=== PATIENT | female | born 1930 | race African-American/Black ===

== ENCOUNTER 2017-05-31 09:54 | Inpatient (IN) | payer MEDICARE, OTHER ==
[~2017-05-31] VITALS: Ht 152.4 cm; Wt 78.0 kg
[2017-05-31] VITALS (34 sets, daily range): BP systolic 90–161; BP diastolic 37–122
[~2017-05-31 09:54] MED LIST: AMLO2.5T45 PO; CHOL100046 PO; FOLI-43 PO; FURO20TA4 PO; MEMA10TA2 PO; MESA800T PO; METH4TAB17 PO; POTA10TA11 PO; PRED1TAB PO
[2017-05-31] MEDS ORDERED: PHENYTOIN SODIUM 500MG in SODIUM CHLORIDE 0.9% 50ML IV ONE (11:15)
[2017-05-31] MEDS ORDERED: PHENYTOIN SODIUM 100MG/2ML VIAL IV ONE (11:15)
[2017-05-31 11:41] LABS: BASOPHILS % 0.8 % (0.0-2.0); EOSINOPHILS % 2.2 % (0.0-5.0); HEMATOCRIT. 38.6 % (36.0-48.0); HEMOGLOBIN. 12.8 g/dL (12.0-16.0); LYMPHOCYTES % 23.3 % (20.0-50.0); MEAN CORPUSCULAR HEMOGLOBIN 30.8 pg (28.0-32.0); MEAN CORPUSCULAR VOLUME 92.8 fL (81.0-99.0); MEAN PLATELET VOLUME 9.1 fl (7.4-10.4); MONOCYTES % 7.3 % (2.0-8.0); NEUTROPHILS % 66.4 % (40.0-76.0); PLATELET 226 x1000/uL (130-400); RED BLOOD CELL COUNT 4.16 mill/uL (4.2-5.4); RED CELL DISTRIBUTION WIDTH 14.5 % (11.6-14.6)
[2017-05-31 11:47] LABS: INR 1.1; PROTHROMBIN TIME 10.9 sec (9.4-11.6)
[2017-05-31 11:54] LABS: CARBON DIOXIDE 30 mEq/L (21-32); CHLORIDE 107 mEq/L (98-107)
[2017-05-31] MEDS ORDERED: SODIUM CHLORIDE 0.9% 500 ML IV ONE (12:45)
[2017-05-31] MEDS ORDERED: HALOPERIDOL LACTATE 5MG/ML VIAL IM ONE (13:00)
[2017-05-31] MEDS ORDERED: LORAZEPAM 2MG/ML CPJ IM STA (14:00)
[2017-05-31] MEDS ORDERED: MORPHINE SULFATE 2 MG/ML CPJ (NOT FOR IM USE) IV PRN (14:15)
[2017-05-31] MEDS ORDERED: ONDANSETRON HCL 4MG/2ML VIAL IV PRN (14:45)
[2017-05-31] MEDS ORDERED: HALOPERIDOL LACTATE 5MG/ML VIAL IM PRN (14:45)
[2017-05-31] MEDS ORDERED: LORAZEPAM 2MG/ML CPJ IV PRN (14:45)
[2017-05-31] MEDS ORDERED: CLONIDINE 0.1MG TABLET PO PRN (14:45)
[2017-05-31] MEDS ORDERED: DIPHENHYDRAMINE 50MG/ML VIAL IV PRN (14:45)
[2017-05-31] MEDS ORDERED: LORAZEPAM 2MG/ML CPJ IV NR (14:45)
[2017-05-31] MEDS ORDERED: DEXT 5%/0.45% NACL KCL 10MEQ/L 1,000 ML IV SCH (14:45)
[2017-05-31] MEDS ORDERED: ACETAMINOPHEN 325MG TABLET PO PRN (14:45)
[2017-05-31] MEDS ORDERED: HALOPERIDOL LACTATE 5MG/ML VIAL IM NR (14:50)
[2017-05-31] MEDS ORDERED: DIPHENHYDRAMINE 50MG/ML VIAL IM NR (15:00)
[2017-05-31] MEDS ORDERED: DEXT 5%/LACTATED RINGERS 1,000 ML IV SCH (15:20)
[2017-05-31] MEDS: PANTOPRAZOLE SODIUM 40 MG/VIAL IV SCH (16:12)
[2017-05-31] MEDS ORDERED: NICARDIPINE 100 MG in SODIUM CHLORIDE 0.9% 60 ML IV PRN ×4 (16:30)
[2017-05-31] MEDS: DEXAMETHASONE 4MG/ML 1ML VIAL IV SCH ×2 (17:37→23:24)
[2017-05-31] MEDS: PHENYTOIN SODIUM 100MG/2ML VIAL IV SCH (21:11)
[2017-06-01] VITALS (61 sets, daily range): BP systolic 91–159; BP diastolic 35–115
[2017-06-01 05:24] LABS: BASOPHILS % 0.2 % (0.0-2.0); HEMATOCRIT. 38.4 % (36.0-48.0); HEMOGLOBIN. 12.8 g/dL (12.0-16.0); LYMPHOCYTES % 12.1 % (20.0-50.0); MEAN CORPUSCULAR HEMOGLOBIN 31.1 pg (28.0-32.0); MEAN CORPUSCULAR VOLUME 93.3 fL (81.0-99.0); MEAN PLATELET VOLUME 9.9 fl (7.4-10.4); MONOCYTES % 1.8 % (2.0-8.0); NEUTROPHILS % 85.9 % (40.0-76.0); PLATELET 181 x1000/uL (130-400); RED BLOOD CELL COUNT 4.12 mill/uL (4.2-5.4); RED CELL DISTRIBUTION WIDTH 14.3 % (11.6-14.6)
[2017-06-01] MEDS: PHENYTOIN SODIUM 100MG/2ML VIAL IV SCH ×3 (05:29→21:36)
[2017-06-01] MEDS: DEXAMETHASONE 4MG/ML 1ML VIAL IV SCH ×3 (05:29→21:36)
[2017-06-01 05:43] LABS: CARBON DIOXIDE 27 mEq/L (21-32); CHLORIDE 108 mEq/L (98-107)
[2017-06-01] MEDS: PANTOPRAZOLE SODIUM 40 MG/VIAL IV SCH (09:28)
[2017-06-01] MEDS ORDERED: IPRATROPIUM/ALBUTEROL 0.5-3(2.5)MG/3ML NEB HHN PRN (09:30)
[2017-06-01] MEDS: MORPHINE SULFATE 2 MG/ML CPJ (NOT FOR IM USE) IV PRN (12:32)
[2017-06-01] MEDS ORDERED: GADOBENATE DIMEGLUMINE 529 MG/ML 10ML IV ONE (13:17)
[2017-06-01] MEDS: DEXT 5%/0.9% NACL 1,000 ML IV SCH (18:03)
[2017-06-02] VITALS (90 sets, daily range): BP systolic 92–160; BP diastolic 36–109
[2017-06-02] MEDS: PHENYTOIN SODIUM 100MG/2ML VIAL IV SCH ×3 (05:36→22:07)
[2017-06-02] MEDS: MORPHINE SULFATE 2 MG/ML CPJ (NOT FOR IM USE) IV PRN ×2 (05:51→10:04)
[2017-06-02] MEDS: DEXAMETHASONE 4MG/ML 1ML VIAL IV SCH ×2 (09:02→22:01)
[2017-06-02] MEDS: PANTOPRAZOLE SODIUM 40 MG/VIAL IV SCH (09:02)
[2017-06-02] MEDS ORDERED: BISACODYL 10MG SUPP PR PRN (09:15)
[2017-06-02] MEDS: DEXT 5%/0.9% NACL 1,000 ML IV SCH (11:40)
[2017-06-02] MEDS ORDERED: MORPHINE SULFATE 2 MG/ML CPJ (NOT FOR IM USE) IV PRN (18:30)
[2017-06-03] VITALS (62 sets, daily range): BP systolic 105–164; BP diastolic 33–90
[2017-06-03] MEDS: DEXT 5%/0.9% NACL 1,000 ML IV SCH (04:18)
[2017-06-03] MEDS ORDERED: PHENYTOIN SODIUM 250MG/5ML VIAL IV SCH (06:00)
[2017-06-03] MEDS: DEXAMETHASONE 4MG/ML 1ML VIAL IV SCH (08:51)
[2017-06-03] MEDS: PANTOPRAZOLE SODIUM 40 MG/VIAL IV SCH (08:51)
[2017-06-03] MEDS ORDERED: ALEN70TA46 PO (13:25)
[2017-06-03] MEDS ORDERED: AMLO2.5T45 PO (13:25)
[2017-06-03] MEDS ORDERED: MESA800T PO (13:25)
[2017-06-03] MEDS ORDERED: BRIM10DR2 OP (13:25)
[2017-06-03] MEDS ORDERED: CHOL20004 PO (13:25)
[2017-06-03] MEDS ORDERED: FOLI-43 PO (13:25)
== END 2017-06-03 16:00 | disposition home health service (06) | DRG 64 ==
LOC: ER 10:43 → MICUSO 12:26 → EDBEDREQ 12:30 → ENRESERV 13:17
PROVIDERS: ADMIT Internal Medicine; ATTEND Internal Medicine
DX: I61.1 Nontraumatic intracerebral hemorrhage in hemisphere, cortical (principal); G93.40 Encephalopathy, unspecified; E11.9 Type 2 diabetes mellitus without complications; G30.9 Alzheimer's disease, unspecified; F02.80 Dementia in other diseases classified elsewhere, unspecified severity, without behavioral disturbance, psychotic disturbance, mood disturbance, and anxiety; I10 Essential (primary) hypertension; M19.90 Unspecified osteoarthritis, unspecified site; K44.9 Diaphragmatic hernia without obstruction or gangrene; K57.90 Diverticulosis of intestine, part unspecified, without perforation or abscess without bleeding; H40.9 Unspecified glaucoma; M06.9 Rheumatoid arthritis, unspecified; Z88.8 Allergy status to other drugs, medicaments and biological substances; Z79.899 Other long term (current) drug therapy; Z90.49 Acquired absence of other specified parts of digestive tract; Z86.73 Personal history of transient ischemic attack (TIA), and cerebral infarction without residual deficits; Z82.49 Family history of ischemic heart disease and other diseases of the circulatory system
CPT/HCPCS: 36415; 70450; 70553; 80048; 80053; 80061; 85025; 85610; 85651; 86850; 86900; 92610; 93970; 96365; 96372; 99291; A9577; C9113; J1100; J1165; J1630; J2060; J2270; J3490; J7030; J7042; J7050; A4315

== ENCOUNTER 2018-08-21 23:17 | Emergency (ER) | payer MEDICARE ==
[~2018-08-21 23:17] MED LIST changes: +ALEN70TA46 PO; +BRIM10DR2 OP; -CHOL100046 PO; +CHOL20004 PO; -METH4TAB17 PO; -PRED1TAB PO
== END 2018-08-21 23:47 | disposition left against medical advice (07) ==
LOC: ER 23:17
DX: Z53.21 Procedure and treatment not carried out due to patient leaving prior to being seen by health care provider (principal)